=== PATIENT | female | born 1955 | race Caucasian/White ===

== ENCOUNTER 2017-06-01 12:12 | Emergency (ER) | payer MEDICAID ==
[2017-06-01 14:13] LABS: ADD MAN DIFF? NO
[2017-06-01 14:16] LABS: WHITE BLOOD COUNT 9.3 10^3/ul (4.8-10.8)
[2017-06-01 14:16] LABS: BASOPHIL # 0.1 10^3/ul (0.0-0.1); BASOPHILS % 0.8 % (0.0-2.0); EOSINOPHILS # 0.1 10^3/ul (0.0-0.5); EOSINOPHILS % 1.1 % (0.0-7.0); HEMATOCRIT 38.3 % (37.0-47.0); HEMOGLOBIN 13.1 g/dl (12.0-16.0); LYMPHOCYTES # 2.3 10^3/ul (0.8-2.9); LYMPHOCYTES % 24.4 % (15.0-51.0); MEAN CORPUSCULAR HEMOGLOBIN 30.4 pg (29.0-33.0); MEAN CORPUSCULAR HGB CONC 34.2 g/dl (32.0-37.0); MEAN CORPUSCULAR VOLUME 88.9 fl (82.0-101.0); MONOCYTE # 0.6 10^3/ul (0.3-0.9); MONOCYTES % 6.3 % (0.0-11.0); NEUTROPHIL # 6.3 10^3/ul (1.6-7.5); NEUTROPHILS % 67.2 % (39.0-77.0); PLATELET COUNT 376 10^3/UL (140-415); RED BLOOD COUNT 4.31 10^6/ul (4.20-5.40); RED CELL DISTRIBUTION WIDTH 12.3 % (11.5-14.5)
[2017-06-01 14:33] LABS: ANION GAP 23 (8-16); BLOOD UREA NITROGEN 16 mg/dl (7-20); CALCIUM 10.1 mg/dl (8.4-10.2); CARBON DIOXIDE 25 mmol/L (21-31); CHLORIDE 101 mmol/L (97-110); CREATININE 0.77 mg/dl (0.44-1.00); GLUCOSE 390 mg/dl (70-220); POTASSIUM 4.4 mmol/L (3.5-5.1); SODIUM 145 mmol/L (135-144)
[2017-06-01 14:45] LABS: B-TYPE NATRIURETIC PEPTIDE 190 PG/ML (0-125)
[2017-06-01 14:49] LABS: TROPONIN-I < 0.012 ng/ml (0.00-0.12)
[2017-06-01] MEDS: KETOROLAC 15 MG INJ IV (15:36)
[2017-06-01] MEDS: SOD CHLORIDE 0.9% 1,000 ML IV (16:23)
== END 2017-06-01 17:45 | disposition home or self-care (01) ==
LOC: E/R 12:12
DX: E11.65 Type 2 diabetes mellitus with hyperglycemia (principal); Z79.4 Long term (current) use of insulin; Z79.82 Long term (current) use of aspirin; Z87.891 Personal history of nicotine dependence
CPT/HCPCS: 36415; 71045; 80048; 83880; 84484; 85025; 93005; 96374; 99285-25

== ENCOUNTER 2017-06-02 17:57 | Emergency (ER) | payer MEDICAID ==
[2017-06-02 21:27] LABS: ADD MAN DIFF? NO
[2017-06-02 21:28] LABS: WHITE BLOOD COUNT 6.9 10^3/ul (4.8-10.8)
[2017-06-02 21:28] LABS: BASOPHIL # 0.1 10^3/ul (0.0-0.1); BASOPHILS % 0.7 % (0.0-2.0); EOSINOPHILS # 0.2 10^3/ul (0.0-0.5); EOSINOPHILS % 2.5 % (0.0-7.0); HEMATOCRIT 37.1 % (37.0-47.0); HEMOGLOBIN 13.1 g/dl (12.0-16.0); LYMPHOCYTES % 28.5 % (15.0-51.0); MEAN CORPUSCULAR HEMOGLOBIN 30.5 pg (29.0-33.0); MEAN CORPUSCULAR HGB CONC 35.3 g/dl (32.0-37.0); MEAN CORPUSCULAR VOLUME 86.3 fl (82.0-101.0); MEAN PLATELET VOLUME 9.7 fl (7.4-10.4); MONOCYTE # 0.6 10^3/ul (0.3-0.9); MONOCYTES % 8.7 % (0.0-11.0); NEUTROPHIL # 4.1 10^3/ul (1.6-7.5); NEUTROPHILS % 59.5 % (39.0-77.0); PLATELET COUNT 346 10^3/UL (140-415); RED CELL DISTRIBUTION WIDTH 12.1 % (11.5-14.5)
[2017-06-02 21:48] LABS: ANION GAP 20 (8-16); BLOOD UREA NITROGEN 18 mg/dl (7-20); CARBON DIOXIDE 23 mmol/L (21-31); CHLORIDE 100 mmol/L (97-110); CREATININE 0.78 mg/dl (0.44-1.00); GLUCOSE 345 mg/dl (70-220); SODIUM 139 mmol/L (135-144)
[2017-06-02 22:00] LABS: B-TYPE NATRIURETIC PEPTIDE 188 PG/ML (0-125); TROPONIN-I < 0.012 ng/ml (0.00-0.12)
[2017-06-02] MEDS: LIDOCAINE/MYLANTA 40 ML BTL PO ×2 (22:01→23:20)
[2017-06-02] MEDS: ASPIRIN 325 MG TAB PO (22:01)
[2017-06-02] MEDS: KETOROLAC 30 MG INJ IV (23:19)
[2017-06-02] MEDS: SOD CHLORIDE 0.9% 1,000 ML IV (23:20)
[2017-06-03] MEDS: HYDROCODONE/APAP (5/325) TAB PO (00:02)
[2017-06-03] MEDS: HYDROmorphONE 0.5 MG/0.5 ML SYG IV (01:07)
[2017-06-03] MEDS: ONDANSETRON 4 MG INJ IV (01:07)
== END 2017-06-03 01:50 | disposition home or self-care (01) ==
LOC: E/R 06-03 01:50
DX: E11.65 Type 2 diabetes mellitus with hyperglycemia (principal); E11.9 Type 2 diabetes mellitus without complications; Z79.4 Long term (current) use of insulin; Z79.82 Long term (current) use of aspirin; Z87.891 Personal history of nicotine dependence
CPT/HCPCS: 36415; 71045; 80048; 83880; 84484; 85025; 93005; 96374; 96375; 99285-25

== ENCOUNTER 2017-06-18 21:46 | Emergency (ER) | payer MEDICAID ==
[2017-06-18] MEDS: ONDANSETRON (ODT) 4 MG TAB ODT (22:29)
[2017-06-18] MEDS: DEXAMETHASONE 10 MG/ML 1 ML INJ IM (22:29)
[2017-06-18] MEDS: HYDROmorphONE 2 MG/ML SYG IM (22:29)
== END 2017-06-18 23:00 | disposition home or self-care (01) ==
LOC: E/R 21:46
DX: B02.8 Zoster with other complications (principal); B02.29 Other postherpetic nervous system involvement; E11.9 Type 2 diabetes mellitus without complications; F17.210 Nicotine dependence, cigarettes, uncomplicated; Z79.4 Long term (current) use of insulin; Z79.82 Long term (current) use of aspirin
CPT/HCPCS: 96372; 99284-25

== ENCOUNTER 2017-06-27 19:24 | Inpatient (IN) | payer MEDICAID ==
[2017-06-27] MEDS: ONDANSETRON 4 MG INJ IV (20:57)
[2017-06-27] MEDS: HYDROmorphONE 0.5 MG/0.5 ML SYG IV ×2 (20:58→23:54)
[2017-06-27 21:07] LABS: ADD MAN DIFF? NO
[2017-06-27 21:10] LABS: BASOPHILS % 0.4 % (0.0-2.0); EOSINOPHILS # 0.2 10^3/ul (0.0-0.5); EOSINOPHILS % 1.9 % (0.0-7.0); HEMOGLOBIN 13.3 g/dl (12.0-16.0); LYMPHOCYTES # 3.5 10^3/ul (0.8-2.9); LYMPHOCYTES % 32.1 % (15.0-51.0); MEAN CORPUSCULAR HEMOGLOBIN 30.7 pg (29.0-33.0); MEAN CORPUSCULAR HGB CONC 34.1 g/dl (32.0-37.0); MEAN CORPUSCULAR VOLUME 90.1 fl (82.0-101.0); MEAN PLATELET VOLUME 10.3 fl (7.4-10.4); MONOCYTE # 0.7 10^3/ul (0.3-0.9); MONOCYTES % 6.1 % (0.0-11.0); NEUTROPHIL # 6.5 10^3/ul (1.6-7.5); PLATELET COUNT 274 10^3/UL (140-415); RED BLOOD COUNT 4.33 10^6/ul (4.20-5.40); RED CELL DISTRIBUTION WIDTH 13.5 % (11.5-14.5)
[2017-06-27 21:30] LABS: ANION GAP 15 (8-16); BLOOD UREA NITROGEN 23 mg/dl (7-20); CALCIUM 9.5 mg/dl (8.4-10.2); CARBON DIOXIDE 31 mmol/L (21-31); CHLORIDE 96 mmol/L (97-110); CREATININE 0.74 mg/dl (0.44-1.00); POTASSIUM 4.2 mmol/L (3.5-5.1); SODIUM 138 mmol/L (135-144)
[2017-06-27] MEDS ORDERED: ONDANSETRON 4 MG INJ IV ×2 (21:30→23:00)
[2017-06-27] MEDS ORDERED: ACETAMINOPHEN 325 MG TAB PO ×2 (21:30→23:00)
[2017-06-27 21:31] LABS: GLUCOSE 448 mg/dl (70-220)
[2017-06-27] MEDS ORDERED: ALBUTEROL/IPRATROPIUM (NEB) 3 ML AMP HHN (23:00)
[2017-06-27] MEDS ORDERED: NACL 0.9% 3 ML SYG IV (23:00)
[2017-06-27] MEDS ORDERED: HYDROCODONE/APAP (10/325) TAB PO (23:00)
[2017-06-27] MEDS ORDERED: RANITIDINE 150 MG TAB PO (23:00)
[2017-06-27] MEDS: ACYCLOVIR 500 MG in SOD CHLORIDE 0.9% 100 ML IVPB (23:09)
[2017-06-27] MEDS ORDERED: GLUCOSE GEL 15 GRAM TUBE PO ×2 (23:45)
[2017-06-27] MEDS ORDERED: GLUCOSE GEL 15 GRAM TUBE BUCCAL (23:45)
[2017-06-27] MEDS ORDERED: DEXTROSE 50% 50 ML SYRINGE IV ×2 (23:45)
[2017-06-27] MEDS ORDERED: GLUCAGON 1 MG INJ IM (23:45)
[2017-06-27] MEDS: INSULIN LISPRO 100 UNIT/ML VIAL SC (23:54)
[2017-06-28] MEDS: SOD CHLORIDE 0.9% 1,000 ML IV ×4 (01:20→18:56)
[2017-06-28] MEDS: INSULIN GLARGINE [LANtus] 3 ML PEN SC ×2 (01:22→20:25)
[2017-06-28] MEDS: ACCU-CHEK XX (01:23)
[2017-06-28] MEDS: ACYCLOVIR 800 MG TAB PO ×2 (02:53→08:28)
[2017-06-28] MEDS: morphine 2 MG INJ IV ×2 (05:32→20:28)
[2017-06-28 05:54] LABS: ADD MAN DIFF? NO
[2017-06-28 05:55] LABS: BASOPHIL # 0.1 10^3/ul (0.0-0.1); BASOPHILS % 0.5 % (0.0-2.0); EOSINOPHILS # 0.5 10^3/ul (0.0-0.5); EOSINOPHILS % 4.3 % (0.0-7.0); HEMATOCRIT 34.1 % (37.0-47.0); HEMOGLOBIN 11.6 g/dl (12.0-16.0); LYMPHOCYTES % 38.4 % (15.0-51.0); MEAN CORPUSCULAR HEMOGLOBIN 30.8 pg (29.0-33.0); MEAN CORPUSCULAR VOLUME 90.5 fl (82.0-101.0); MONOCYTE # 0.8 10^3/ul (0.3-0.9); MONOCYTES % 7.9 % (0.0-11.0); NEUTROPHIL # 5.1 10^3/ul (1.6-7.5); NEUTROPHILS % 48.5 % (39.0-77.0); PLATELET COUNT 231 10^3/UL (140-415); RED BLOOD COUNT 3.77 10^6/ul (4.20-5.40); RED CELL DISTRIBUTION WIDTH 13.6 % (11.5-14.5)
[2017-06-28 05:55] LABS: WHITE BLOOD COUNT 10.4 10^3/ul (4.8-10.8)
[2017-06-28 06:30] LABS: ALANINE AMINOTRANSFERASE 27 IU/L (13-69); ALBUMIN 3.5 g/dl (3.3-4.9); ALBUMIN/GLOBULIN RATIO 1.29; ALKALINE PHOSPHATASE 61 IU/L (42-121); ANION GAP 12 (8-16); ASPARTATE AMINO TRANSFERASE 14 IU/L (15-46); BILIRUBIN,INDIRECT 0.1 mg/dl (0-1.1); BILIRUBIN,TOTAL 0.1 mg/dl (0.2-1.3); BLOOD UREA NITROGEN 17 mg/dl (7-20); CALCIUM 8.7 mg/dl (8.4-10.2); CARBON DIOXIDE 30 mmol/L (21-31); CHLORIDE 103 mmol/L (97-110); CHOL/HDL RATIO 4.1 RATIO; CHOLESTEROL 160 mg/dl (100-200); CREATININE 0.58 mg/dl (0.44-1.00); GLUCOSE 222 mg/dl (70-220); HDL CHOLESTEROL 39 mg/dl (35-98); LDL CHOLESTEROL,CALCULATED 98 mg/dl; MAGNESIUM 1.9 mg/dl (1.7-2.5); PHOSPHORUS 2.4 mg/dl (2.5-4.9); POTASSIUM 3.6 mmol/L (3.5-5.1); SODIUM 141 mmol/L (135-144); TOTAL PROTEIN 6.2 g/dl (6.1-8.1); TRIGLYCERIDES 113 mg/dl (0-149)
[2017-06-28] MEDS: predniSONE 10 MG TAB PO (08:28)
[2017-06-28] MEDS: ASPIRIN (EC) 81 MG TAB PO (08:28)
[2017-06-28] MEDS: INSULIN ASPART [NOVOLOG] 3 ML PEN SC ×8 (08:32→21:03)
[2017-06-28] MEDS: PREGABALIN 75 MG CAP PO ×2 (10:38→20:22)
[2017-06-28] MEDS: GABAPENTIN 300 MG CAP PO ×2 (10:39→14:08)
[2017-06-28 13:39] LABS: UR CLARITY CLOUDY (CLEAR); UR COLOR YELLOW (YELLOW)
[2017-06-28 13:40] LABS: ADD UMIC YES; UR ASCORBIC ACID NEGATIVE (NEGATIVE); UR BACTERIA MODERATE /HPF (NONE SEEN); UR BILIRUBIN (Dip) NEGATIVE (NEGATIVE); UR BLOOD (Dip) NEGATIVE (NEGATIVE); UR GLUCOSE (Dip) 3+ mg/dL (NEGATIVE); UR KETONES (Dip) NEGATIVE (NEGATIVE); UR LEUKOCYTE ESTERASE (Dip) 2+ Leu/ul (NEGATIVE); UR NITRITE (Dip) POSITIVE (NEGATIVE); UR RBC 2 /HPF (0-5); UR SPECIFIC GRAVITY (Dip) 1.008 (1.003-1.030); UR SQUAMOUS EPITHELIAL CELL MODERATE /HPF (FEW); UR TOTAL PROTEIN (Dip) NEGATIVE (NEGATIVE); UR UROBILINOGEN (Dip) NEGATIVE (NEGATIVE); UR WBC 32 /HPF (0-5)
[2017-06-28] MEDS: METHADONE (1 MG/1 ML PO SYG) PO ×2 (15:30→23:30)
[2017-06-28] MEDS ORDERED: METHADONE (1 MG/1 ML PO SYG) ×2 (16:54→23:42)
[2017-06-28] MEDS: AMITRIPTYLINE 25 MG TAB PO (20:22)
[2017-06-29] MEDS: ACCU-CHEK XX (01:07)
[2017-06-29] MEDS: SOD CHLORIDE 0.9% 1,000 ML IV ×2 (01:07→04:56)
[2017-06-29] MEDS ORDERED: METHADONE (1 MG/1 ML PO SYG) PO (02:00)
[2017-06-29] MEDS: morphine 2 MG INJ IV ×3 (03:39→22:26)
[2017-06-29 06:07] LABS: ADD MAN DIFF? NO
[2017-06-29 06:25] LABS: BASOPHILS % 0.2 % (0.0-2.0); EOSINOPHILS # 0.2 10^3/ul (0.0-0.5); EOSINOPHILS % 1.4 % (0.0-7.0); HEMATOCRIT 31.8 % (37.0-47.0); HEMOGLOBIN 10.6 g/dl (12.0-16.0); LYMPHOCYTES # 3.8 10^3/ul (0.8-2.9); LYMPHOCYTES % 29.9 % (15.0-51.0); MEAN CORPUSCULAR HEMOGLOBIN 30.9 pg (29.0-33.0); MEAN CORPUSCULAR HGB CONC 33.3 g/dl (32.0-37.0); MEAN CORPUSCULAR VOLUME 92.7 fl (82.0-101.0); MEAN PLATELET VOLUME 10.4 fl (7.4-10.4); MONOCYTE # 0.7 10^3/ul (0.3-0.9); MONOCYTES % 5.7 % (0.0-11.0); NEUTROPHIL # 7.9 10^3/ul (1.6-7.5); NEUTROPHILS % 62.2 % (39.0-77.0); PLATELET COUNT 202 10^3/UL (140-415); RED BLOOD COUNT 3.43 10^6/ul (4.20-5.40); RED CELL DISTRIBUTION WIDTH 13.9 % (11.5-14.5)
[2017-06-29 06:25] LABS: WHITE BLOOD COUNT 12.7 10^3/ul (4.8-10.8)
[2017-06-29 06:34] LABS: ANION GAP 10 (8-16); BLOOD UREA NITROGEN 17 mg/dl (7-20); CALCIUM 8.8 mg/dl (8.4-10.2); CARBON DIOXIDE 28 mmol/L (21-31); CHLORIDE 110 mmol/L (97-110); CREATININE 0.61 mg/dl (0.44-1.00); GLUCOSE 193 mg/dl (70-220); POTASSIUM 4.4 mmol/L (3.5-5.1); SODIUM 144 mmol/L (135-144)
[2017-06-29] MEDS: METHADONE (1 MG/1 ML PO SYG) PO ×2 (07:59→15:56)
[2017-06-29] MEDS: IBUPROFEN 600 MG TAB PO (07:59)
[2017-06-29] MEDS: INSULIN ASPART [NOVOLOG] 3 ML PEN SC ×7 (08:08→21:05)
[2017-06-29] MEDS: ASPIRIN (EC) 81 MG TAB PO (09:12)
[2017-06-29] MEDS: PREGABALIN 75 MG CAP PO ×2 (09:13→21:03)
[2017-06-29] MEDS: AMITRIPTYLINE 25 MG TAB PO (21:03)
[2017-06-29] MEDS: INSULIN GLARGINE [LANtus] 3 ML PEN SC (21:06)
[2017-06-30] MEDS: ACCU-CHEK XX (02:00)
[2017-06-30 05:56] LABS: ADD MAN DIFF? NO
[2017-06-30 06:11] LABS: BASOPHIL # 0.1 10^3/ul (0.0-0.1); BASOPHILS % 0.5 % (0.0-2.0); EOSINOPHILS # 0.4 10^3/ul (0.0-0.5); HEMATOCRIT 33.9 % (37.0-47.0); HEMOGLOBIN 11.4 g/dl (12.0-16.0); LYMPHOCYTES % 36.7 % (15.0-51.0); MEAN CORPUSCULAR HEMOGLOBIN 30.9 pg (29.0-33.0); MEAN CORPUSCULAR HGB CONC 33.6 g/dl (32.0-37.0); MEAN CORPUSCULAR VOLUME 91.9 fl (82.0-101.0); MEAN PLATELET VOLUME 10.8 fl (7.4-10.4); MONOCYTE # 0.6 10^3/ul (0.3-0.9); MONOCYTES % 5.8 % (0.0-11.0); NEUTROPHIL # 5.7 10^3/ul (1.6-7.5); NEUTROPHILS % 52.3 % (39.0-77.0); PLATELET COUNT 203 10^3/UL (140-415); RED BLOOD COUNT 3.69 10^6/ul (4.20-5.40); RED CELL DISTRIBUTION WIDTH 13.9 % (11.5-14.5)
[2017-06-30 06:11] LABS: WHITE BLOOD COUNT 10.8 10^3/ul (4.8-10.8)
[2017-06-30 06:27] LABS: ANION GAP 12 (8-16); BLOOD UREA NITROGEN 15 mg/dl (7-20); CALCIUM 9.3 mg/dl (8.4-10.2); CARBON DIOXIDE 29 mmol/L (21-31); CHLORIDE 107 mmol/L (97-110); CREATININE 0.64 mg/dl (0.44-1.00); GLUCOSE 143 mg/dl (70-220); POTASSIUM 4.3 mmol/L (3.5-5.1); SODIUM 144 mmol/L (135-144)
[2017-06-30] MEDS: INSULIN ASPART [NOVOLOG] 3 ML PEN SC ×4 (07:49→11:55)
[2017-06-30] MEDS: METHADONE (1 MG/1 ML PO SYG) PO ×3 (08:10→14:16)
[2017-06-30] MEDS: ASPIRIN (EC) 81 MG TAB PO (08:10)
[2017-06-30] MEDS: PREGABALIN 75 MG CAP PO (08:10)
[2017-06-30] MEDS: LEVOFLOXACIN 250 MG TAB PO (14:18)
== END 2017-06-30 17:25 | disposition home or self-care (01) | DRG 74 ==
LOC: MS2 21:12 → E/R 19:24
DX: B02.29 Other postherpetic nervous system involvement (principal); N39.0 Urinary tract infection, site not specified; B02.9 Zoster without complications; E10.65 Type 1 diabetes mellitus with hyperglycemia; Z79.4 Long term (current) use of insulin; R07.9 Chest pain, unspecified
CPT/HCPCS: 36415; 80048; 80053; 80061; 81001; 82962; 83036; 83735; 84100; 85025; 93005; 96372; 96374; 96375; 99285-25

== ENCOUNTER 2017-07-14 21:45 | Emergency (ER) | payer MEDICAID | END 2017-07-14 23:11 | disposition home or self-care (01) | LOC: FTE 21:45 | DX: Z76.0 Encounter for issue of repeat prescription (principal); E11.9 Type 2 diabetes mellitus without complications; Z79.4 Long term (current) use of insulin; Z79.82 Long term (current) use of aspirin | CPT/HCPCS: 99281; Z7502 ==

== ENCOUNTER 2017-08-28 13:39 | Emergency (ER) | payer MEDICAID | END 2017-08-28 15:24 | disposition home or self-care (01) | LOC: FTE 13:39 | DX: B02.9 Zoster without complications (principal); E11.9 Type 2 diabetes mellitus without complications; Z79.4 Long term (current) use of insulin; Z79.82 Long term (current) use of aspirin | CPT/HCPCS: 99284; Z7502 ==

== ENCOUNTER 2018-01-22 16:59 | Emergency (ER) | payer MEDICAID | END 2018-01-22 18:55 | disposition home or self-care (01) | LOC: FTE 16:59 | DX: H10.9 Unspecified conjunctivitis (principal); E11.9 Type 2 diabetes mellitus without complications; Z79.4 Long term (current) use of insulin | CPT/HCPCS: 99282; Z7502 ==

== ENCOUNTER 2018-07-02 22:07 | Emergency (ER) | payer MEDICAID ==
[2018-07-03] MEDS: CEPHALEXIN 500 MG CAP PO (00:10)
[2018-07-03] MEDS: IBUPROFEN 200 MG TAB PO (00:10)
[2018-07-03] MEDS: TRIMETHOPRIM/SULFAMETHOX (DS) TAB PO (00:10)
== END 2018-07-03 00:13 | disposition home or self-care (01) ==
LOC: FTE 07-03 00:13
DX: M79.674 Pain in right toe(s) (principal); E11.9 Type 2 diabetes mellitus without complications; Z79.4 Long term (current) use of insulin; Z79.82 Long term (current) use of aspirin
CPT/HCPCS: 99283; Z7502

== ENCOUNTER 2018-10-23 15:47 | Inpatient (IN) | payer MEDICAID ==
[2018-10-23] MEDS: SODIUM CHLORIDE 0.9% 1L BAG IV* (16:21)
[2018-10-23 16:36] LABS: URINE BLOOD (Dip) POC Negative (NEGATIVE); URINE KETONES (Dip) POC 1+ (NEGATIVE); URINE LEUKOCYTE EST (Dip) POC 2+ (NEGATIVE); URINE NITRITE (Dip) POC Negative (NEGATIVE); URINE TOTAL PROTEIN POC 2+ (NEGATIVE)
[2018-10-23 16:37] LABS: ADD MAN DIFF? NO
[2018-10-23 16:39] LABS: BASOPHILS % 0.7 % (0.0-2.0); EOSINOPHILS # 0.2 10^3/ul (0.0-0.5); HEMATOCRIT 35.7 % (37.0-47.0); HEMOGLOBIN 12.3 g/dl (12.0-16.0); LYMPHOCYTES # 2.6 10^3/ul (0.8-2.9); LYMPHOCYTES % 28.8 % (15.0-51.0); MEAN CORPUSCULAR HEMOGLOBIN 30.4 pg (29.0-33.0); MEAN CORPUSCULAR HGB CONC 34.5 g/dl (32.0-37.0); MEAN CORPUSCULAR VOLUME 88.1 fl (82.0-101.0); MEAN PLATELET VOLUME 10.3 fl (7.4-10.4); MONOCYTE # 0.5 10^3/ul (0.3-0.9); MONOCYTES % 5.5 % (0.0-11.0); NEUTROPHIL # 5.7 10^3/ul (1.6-7.5); NEUTROPHILS % 62.8 % (39.0-77.0); PLATELET COUNT 312 10^3/UL (140-415); RED BLOOD COUNT 4.05 10^6/ul (4.20-5.40); RED CELL DISTRIBUTION WIDTH 12.5 % (11.5-14.5)
[2018-10-23 16:39] LABS: WHITE BLOOD COUNT 9.1 10^3/ul (4.8-10.8)
[2018-10-23 16:40] LABS: BASOPHIL # 0.1 10^3/ul (0.0-0.1)
[2018-10-23 17:01] LABS: ALANINE AMINOTRANSFERASE 29 IU/L (13-69); ALKALINE PHOSPHATASE 82 IU/L (42-121); ANION GAP 13 (5-13); ASPARTATE AMINO TRANSFERASE 19 IU/L (15-46); BILIRUBIN,INDIRECT 0.5 mg/dl (0-1.1); BILIRUBIN,TOTAL 0.5 mg/dl (0.2-1.3); BLOOD UREA NITROGEN 22 mg/dl (7-20); CARBON DIOXIDE 23 mmol/L (21-31); CHLORIDE 102 mmol/L (97-110); CREATININE 1.47 mg/dl (0.44-1.00); Estimated GFR 36 mL/min (>60); GLUCOSE 367 mg/dl (70-220); SODIUM 138 mmol/L (135-144); TOTAL PROTEIN 7.6 g/dl (6.1-8.1)
[2018-10-23 17:02] LABS: ALBUMIN 4.3 g/dl (3.3-4.9)
[2018-10-23 17:08] LABS: ADD UMIC YES; UR ASCORBIC ACID NEGATIVE (NEGATIVE); UR BACTERIA MODERATE /HPF (NONE SEEN); UR BILIRUBIN (Dip) NEGATIVE (NEGATIVE); UR BLOOD (Dip) 1+ mg/dL (NEGATIVE); UR CLARITY CLOUDY (CLEAR); UR COLOR AMBER (YELLOW); UR GLUCOSE (Dip) 2+ mg/dL (NEGATIVE); UR HYALINE CAST FEW /HPF (NONE SEEN); UR KETONES (Dip) NEGATIVE (NEGATIVE); UR LEUKOCYTE ESTERASE (Dip) 2+ Leu/ul (NEGATIVE); UR MUCUS FEW /HPF (NONE SEEN); UR NITRITE (Dip) NEGATIVE (NEGATIVE); UR RBC 8 /HPF (0-5); UR SPECIFIC GRAVITY (Dip) 1.025 (1.003-1.030); UR SQUAMOUS EPITHELIAL CELL MANY /HPF (FEW); UR TOTAL PROTEIN (Dip) 2+ mg/dl (NEGATIVE); UR UROBILINOGEN (Dip) NEGATIVE (NEGATIVE); UR WBC 98 /HPF (0-5)
[2018-10-23 17:13] LABS: TROPONIN-I < 0.012 ng/ml (0.000-0.120)
[2018-10-23 17:19] LABS: INR 0.95; PARTIAL THROMBOPLASTIN TIME 25.2 Sec (23.0-35.0); PROTIME 12.8 Sec (11.9-14.9)
[2018-10-23 17:24] LABS: LACTIC ACID 2.4 mmol/L (0.5-2.0)
[2018-10-23] MEDS: PIPER-TAZO 3.375 GM IV (PMX) 100 ML IVPB (18:02)
[2018-10-23] MEDS ORDERED: LACTATED RINGER'S 1,000 ML IV (18:30)
[2018-10-23] MEDS ORDERED: ONDANSETRON 4 MG INJ IV (18:30)
[2018-10-23] MEDS ORDERED: NACL 0.9% 3 ML SYG IV (18:30)
[2018-10-23] MEDS ORDERED: AZITHROMYCIN 500MG/NS (PMX) 250 ML IVPB (19:00)
[2018-10-23] MEDS ORDERED: GLUCOSE GEL 15 GRAM TUBE PO ×2 (19:00)
[2018-10-23] MEDS ORDERED: GLUCAGON 1 MG INJ IM (19:00)
[2018-10-23] MEDS ORDERED: GLUCOSE GEL 15 GRAM TUBE BUCCAL (19:00)
[2018-10-23] MEDS ORDERED: DEXTROSE 50% 50 ML SYRINGE IV ×2 (19:00)
[2018-10-23] MEDS: VANCOMYCIN 1 GM (PMX) 250 ML IVPB (19:10)
[2018-10-23 21:38] LABS: LACTIC ACID 1.6 mmol/L (0.5-2.0)
[2018-10-23] MEDS: CEFTRIAXONE 1 GM/50 ML (PMX) 50 ML IVPB (21:41)
[2018-10-23] MEDS: INSULIN ASPART [NOVOLOG] 3 ML PEN SC (21:47)
[2018-10-23] MEDS: INSULIN GLARGINE [LANTus] (100 UNITS/ML) SYG SC (21:48)
[2018-10-24] MEDS: ACCU-CHEK XX ×2 (02:15→22:08)
[2018-10-24 05:42] LABS: ADD MAN DIFF? NO
[2018-10-24 05:48] LABS: BASOPHIL # 0.1 10^3/ul (0.0-0.1); EOSINOPHILS # 0.5 10^3/ul (0.0-0.5); EOSINOPHILS % 6.3 % (0.0-7.0); LYMPHOCYTES # 2.9 10^3/ul (0.8-2.9); LYMPHOCYTES % 40.4 % (15.0-51.0); MEAN CORPUSCULAR HEMOGLOBIN 29.8 pg (29.0-33.0); MEAN CORPUSCULAR HGB CONC 33.3 g/dl (32.0-37.0); MEAN CORPUSCULAR VOLUME 89.4 fl (82.0-101.0); MEAN PLATELET VOLUME 9.9 fl (7.4-10.4); MONOCYTE # 0.5 10^3/ul (0.3-0.9); MONOCYTES % 6.8 % (0.0-11.0); NEUTROPHIL # 3.2 10^3/ul (1.6-7.5); NEUTROPHILS % 45.4 % (39.0-77.0); PLATELET COUNT 271 10^3/UL (140-415); RED BLOOD COUNT 3.69 10^6/ul (4.20-5.40); RED CELL DISTRIBUTION WIDTH 12.5 % (11.5-14.5)
[2018-10-24 05:48] LABS: WHITE BLOOD COUNT 7.1 10^3/ul (4.8-10.8)
[2018-10-24 06:26] LABS: ALANINE AMINOTRANSFERASE 26 IU/L (13-69); ALBUMIN 3.2 g/dl (3.3-4.9); ALBUMIN/GLOBULIN RATIO 1.06; ALKALINE PHOSPHATASE 55 IU/L (42-121); ANION GAP 5 (5-13); ASPARTATE AMINO TRANSFERASE 17 IU/L (15-46); BILIRUBIN,INDIRECT 0.3 mg/dl (0-1.1); BILIRUBIN,TOTAL 0.3 mg/dl (0.2-1.3); BLOOD UREA NITROGEN 19 mg/dl (7-20); CALCIUM 9.2 mg/dl (8.4-10.2); CARBON DIOXIDE 26 mmol/L (21-31); CHLORIDE 114 mmol/L (97-110); CHOL/HDL RATIO 5.7 RATIO; CHOLESTEROL 211 mg/dl (100-200); CREATININE 0.68 mg/dl (0.44-1.00); Estimated GFR > 60 mL/min (>60); GLUCOSE 84 mg/dl (70-220); HDL CHOLESTEROL 37 mg/dl (35-98); LDL CHOLESTEROL,CALCULATED 157 mg/dl; MAGNESIUM 1.9 mg/dl (1.7-2.5); PHOSPHORUS 4.6 mg/dl (2.5-4.9); SODIUM 145 mmol/L (135-144); TOTAL PROTEIN 6.2 g/dl (6.1-8.1); TRIGLYCERIDES 86 mg/dl (0-149)
[2018-10-24 06:45] LABS: THYROID STIMULATING HORMONE 0.939 MIU/L (0.465-4.680)
[2018-10-24 07:05] LABS: HEMOGLOBIN A1C 11.3 % (0-5.9)
[2018-10-24] MEDS: INSULIN ASPART [NOVOLOG] 3 ML PEN SC ×5 (08:00→22:07)
[2018-10-24] MEDS: ACETAMINOPHEN 325 MG TAB PO (08:18)
[2018-10-24] MEDS: CEFTRIAXONE 1 GM/50 ML (PMX) 50 ML IVPB (17:34)
[2018-10-24] MEDS: INSULIN GLARGINE [LANTus] (100 UNITS/ML) SYG SC (20:43)
[2018-10-25] MEDS: ACCU-CHEK XX (02:46)
[2018-10-25] MEDS: INSULIN ASPART [NOVOLOG] 3 ML PEN SC ×5 (08:04→20:34)
[2018-10-25] MEDS: ACETAMINOPHEN 325 MG TAB PO (14:32)
[2018-10-25] MEDS: CEFTRIAXONE 1 GM/50 ML (PMX) 50 ML IVPB (18:32)
[2018-10-25] MEDS: INSULIN GLARGINE [LANTus] (100 UNITS/ML) SYG SC (20:36)
[2018-10-26] MEDS: ACETAMINOPHEN 325 MG TAB PO ×2 (00:03→09:06)
[2018-10-26] MEDS: ACCU-CHEK XX (02:15)
[2018-10-26] MEDS: INSULIN ASPART [NOVOLOG] 3 ML PEN SC ×4 (08:06→12:13)
== END 2018-10-26 16:07 | disposition home or self-care (01) | DRG 872 ==
LOC: 6WM 20:45 → E/R 15:47 → 6WM 18:09
PROVIDERS: Internal Medicine
DX: A41.9 Sepsis, unspecified organism (principal); N39.0 Urinary tract infection, site not specified; R65.20 Severe sepsis without septic shock; B96.89 Other specified bacterial agents as the cause of diseases classified elsewhere
CPT/HCPCS: 36415; 71045; 80053; 80061; 81001; 81003; 82962; 83036; 83605; 83735; 84100; 84443; 84484; 85025; 85610; 85730; 87040-91; 87086; 87400; 93005; 96374; 97161; 99285-25